=== PATIENT | female | born 1950 | race Caucasian/White ===

== ENCOUNTER → 2018-05-11 | Outpatient (CLI) | payer MEDICARE | LOC: M LRY 20:00 | DX: R05 Cough (principal) | CPT/HCPCS: 71046; G0463 ==

== ENCOUNTER → 2018-06-16 | Outpatient (REF) | payer MEDICARE | LOC: M SFHCLERA 17:04 | DX: N89.8 Other specified noninflammatory disorders of vagina (principal); R32 Unspecified urinary incontinence | CPT/HCPCS: 87086 ==